=== PATIENT | female | born 2000 | race African-American/Black ===

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

== ENCOUNTER 2018-02-24 14:06 | Emergency (ER) | payer SELFPAY ==
[2018-02-24] MEDS ORDERED: Ibuprofen 800 MG TAB ONE (14:36)
== END 2018-02-24 14:39 | disposition home or self-care (01) ==
LOC: SCSER 14:06
DX: M77.02 Medial epicondylitis, left elbow (principal); J45.909 Unspecified asthma, uncomplicated
CPT/HCPCS: 99283

== ENCOUNTER 2018-11-30 15:53 | Emergency (ER) | payer SELFPAY ==
[2018-11-30 16:27] LABS: Bilirubin Negative (Negative); Blood, Urine Negative (Negative); Clarity Clear (Clear); Glucose, Urine (Dipstick) Negative (Negative); Leukocyte Negative (Negative); Nitrite Negative (Negative); Protein, Urine (Dipstick) Trace mg/dL (Neg-Trace); pH, Urine 8.5 (5.0-9.0)
[2018-11-30 16:54] LABS: Eosinophils 1 % (0-10); Hemoglobin 11.6 g/dL (12.0-16.0); Lymphocytes 23 % (28-48); MDiff Complete? YES; Mean Corpuscular HGB CONC 32.9 g/dL (32.0-36.0); Mean Corpuscular Hemoglobin 28.4 pg (25.0-35.0); Mean Corpuscular Volume 86.3 fL (78.0-98.0); Mean Platelet Volume 5.2 fL (7.4-10.4); Monocytes 15 % (0-4); Neutrophil 58 % (31-61); Platelet Count 327 thou/uL (130-400); Platelet Morphology Comment Appears Adequate; RBC Distribution Width 12.3 % (11.5-14.5); Reactive Lymphocytes 3 % (0-10); Red Blood Cell (RBC) Count 4.08 mill/uL (4.00-5.20); White Blood Cell (WBC) Count 6.6 thou/uL (4.8-10.8)
--- NOTE | 2018-11-30 18:51 | ULT ---
FEXAM: Transabdominal pelvic ultrasound with Doppler PROVIDED CLINICAL HISTORY: Pelvic pain, positive test COMPARISON: None FINDINGS: Uterus measures about 8.8 x 4.5 x 5.1 cm. There is an intrauterine gestational sac containing a pole and yolk sac. Oakes-rump length measurement corresponds to 6 week 0 day gestation. heart rate of 95 bpm is documented. There is a small amount of perigestational hemorrhage. The right and left ovaries are not identified. There is no evidence for significant free pelvic fluid . IMPRESSION: Single live intrauterine gestation, 6 weeks 0 days by crown-rump length. Small amount of perigestatio nal hemorrhage.
[2018-12-03 17:06] LABS: Chlamydia by PCR Not Detected (NotDetected); GC by PCR DETECTED (NotDetected)
== END 2018-11-30 19:34 | disposition home or self-care (01) ==
LOC: SCSER 15:53
DX: O99.89 Other specified diseases and conditions complicating pregnancy, childbirth and the puerperium (principal); R10.30 Lower abdominal pain, unspecified; O99.011 Anemia complicating pregnancy, first trimester; Z3A.01 Less than 8 weeks gestation of pregnancy
CPT/HCPCS: 36415; 76856; 81003; 84702; 85025; 87480; 87510; 87660

== ENCOUNTER 2018-12-22 09:51 | Emergency (ER) | payer OTHER ==
[2018-12-22] MEDS ORDERED: Proparacaine 0.5% Opth 15 ML BOT ONE (10:06)
[2018-12-22] MEDS ORDERED: Acetaminophen 500 MG TAB ONE (10:20)
== END 2018-12-22 10:27 | disposition home or self-care (01) ==
LOC: SCSER 09:51
DX: O99.89 Other specified diseases and conditions complicating pregnancy, childbirth and the puerperium (principal); R51 Headache; Z3A.09 9 weeks gestation of pregnancy
CPT/HCPCS: 99283

== ENCOUNTER 2019-03-09 09:34 | Day surgery (SDC) | payer OTHER ==
[2019-03-09 10:16] VITALS: BMI 22.3
[2019-03-09] MEDS ORDERED: hydrALAZINE 20 MG/ML VIAL SLOW IVP PRN (10:53)
--- NOTE | 2019-03-09 11:02 | PDOC.FPROB ---
FMR OB H&P: HPI - History of Present Illness Chief Complaint: Abdominal pain with vomiting and diarrhea History of Present Illness: Emilia Whitney is a 18 year old female who presents with vague mid- abdominal pain accompanied by vomiting and diarrhea. She began to feel nauseous on Thursday, and had dry heaving that night. She had taken 3 zofran that day, which had been prescribed to her in early . On Thursday morning, she vomited once and it appeared like yellow bile to her. She did not vomit again until this morning when she vomited several times. Then at work, she vomited profusely at her desk. The vomit appeared to have streaks of bright red blood in it, but was primarily bilious. She also began to have profusely loose and watery green diarrhea this morning. Her co-workers brought her to the ER at [facility] because it was closest to her work, and she was sent to OB triage to rule out obstetric problems. On presentation, she denied vaginal bleeding or lower uterine cramping. She has only had a minor amount of white discharge that is not abnormal for her. Her obstetrical history has been uncomplicated as far as she knows, and her last OB appointment was [address] Forte. She reports her abdominal pain to extend from her umbilicus down to the top of her pelvic region, and states the pain is 6/10. At its worst, she experienced 9/10 pain when she had thrown up at work. She reports feeling constipated over the past 2-3 weeks, which she associates with starting to use zofran. She has not taken any zofran in the last 3 days, and has not attempted to relieve her nausea or pain with anything else. She denies recent trave or sick contacts, and does not think that she has eaten anything suspicous in the last few days. Her last meal was [employer] chicken tenders yesterday evening, and she was able to eat a little bit of some apples this mornign. She has been able to keep down liquid, with her last sips of liquid being this morning at work. Primary Care Physician: Dr. Forte - OB - [facility] OB H&P: Current - Care : 1 Para: 1 Gestational age: 20 weeks 0 days Due date: July 27 Course/Complications: Full care per history, no complications FMR OB H&P: History - Past Medical History PMH: Asthma, diagnosed in childhood - treated with PRN inhaler that she has not had to use in over a month Glaucoma, diagnosed ~3 months ago -treated with eye drops - Social History Social History: Never smoked, does not consume alcohol FMR OB H&P: Medications - Current Home Medications: Medication Instructions Recorded Confirmed Type Albuterol Sulfate [Proair HFA] 1 puff INH PRN PRN 03/09/19 03/09/19 History Brimonidine Tartrate [Brimonidine 1 drop EA EYE TID 03/09/19 03/09/19 History Tartrate 0.15% Ophth Soln] Allergies/Adverse Reactions: Allergies Allergy/AdvReac Type Severity Reaction Status Date / Time No Known Allergies Allergy Verified 03/09/19 10:21 FMR OB H&P: ROS - Review of Systems General: denies: recent trauma Eyes: reports: vision changes (Glaucoma) Cardiovascular: denies: chest pain, orthopnea Respiratory: denies: shortness of breath Gastrointestinal: reports: abdominal pain, bloating, cramping, nausea, vomiting , diarrhea, constipation (Over the past 2-3 weeks has been constipated, with straining during defecation. Diarrhea began this morning.), bright red blood ( In vomit) Genitourinary (Female): reports: vaginal discharge (White discharge not out of the normal for her). denies: vaginal bleeding, contractions Neurologic: denies: syncope, seizures, loss of counsciousness, headache FMR OB H&P: Vital Signs - Maternal Vital signs: Temp 99.1 - Heart Tones Baseline: 140 FMR OB H&P: Physical Exam - Physical Exam General: awake, alert and oriented Heart: RRR, normal S1/S2, no murmurs/rubs/gallops General: CTAB, no respiratory distress, good air movement, no rales/rhonchi, no wheezing, no retractions Abdomen: soft, gravid, non-tender, bowel sound present (Rumbling, active BS) FMR OB H&P: A/P Disposition: Viral gastroenteritis is strongly suspected. Patient is stable and obstetrical issues have been ruled out at this time. Patient will be discharged and has been given instructions to continue to keep fluid down as tolerated and to replace electrolytes with diluted gatorade or pedialyte. She will call Dr. Forte in one day if she has not resolved her symptoms. Discussion: Date/Time: 03/09/19 2985 This H&P was discussed with [] and [] who agree with the above documentation and plan. Addendum - Attending - Attending Attestation Date/Time: 03/09/19 1119 I personally evaluated the patient and discussed the management with Michael Pitts MS3 [facility] I agree with the History, Examination, Assessment and Plan documented above with any addition or exceptions noted below. Vital signs, 99/67, P83, Sat 100% ra. PE: Abdomen soft to palpation, no palpable contractions. BS hyperactive in upper abdomen, no sounds concerning for obstruction. A/P IUP 20 wks Gastroenteritis likely- able to keep fluids down. Pt has RX at home for nausea/ vomiting. Pt to Follow up with Dr Forte in 1-2 days if symptoms dont improve.
== END 2019-03-09 10:55 | disposition home health service (06) ==
LOC: L&D/OP 09:34
PROVIDERS: ATTEND Obstetrics & Gynecology
DX: O21.9 Vomiting of pregnancy, unspecified (principal); O99.89 Other specified diseases and conditions complicating pregnancy, childbirth and the puerperium; R10.33 Periumbilical pain; R19.7 Diarrhea, unspecified; H40.9 Unspecified glaucoma; O99.512 Diseases of the respiratory system complicating pregnancy, second trimester; J45.909 Unspecified asthma, uncomplicated; Z3A.20 20 weeks gestation of pregnancy
CPT/HCPCS: 99282

== ENCOUNTER 2020-10-08 05:49 | Emergency (ER) | payer SELFPAY ==
[2020-10-08] MEDS ORDERED: Meclizine HCl 25 MG TAB ONE (06:02)
[2020-10-08] MEDS ORDERED: Acetaminophen 500 MG TAB ONE (06:54)
--- NOTE | 2020-10-08 07:39 | CT ---
PRELIMINARY REPORT/[facility]/EMERGENCY AFTER HOURS PROCEDURE EXAM: CT Head Without Intravenous Contrast. CLINICAL HISTORY: NO PREVIOUS.. ER 12.... TRIPPED OVER CHILD'S TOYS. BLURRED VISION, HEADACHE, DIZZINESS. POSS LOC. ONL Y ONE HOME. TECHNIQUE: Axial computed tomography images of the head/brain without intravenous contrast. COMPARISON: None provided. FINDINGS: BRAIN: No acute intraparenchymal hemorrhage. No mass lesion. No CT evidence for acute territorial infarct. N o midline shift or extra-axial collection. VENTRICLES: No hydrocephalus. ORBITS: The orbits are unremarkable. SINUSES AND MASTOIDS: The paranasal sinuses and mastoid air cells are clear. SOFT TISSUES: No significant facial or scalp soft tissue swelling evident. No radiopaque foreign body is seen. BONES: No acute skull fracture. IMPRESSION: No acute intracranial abnormality. ELECTRONICALLY SIGNED BY: Mikayla Buckley MD Oct 08, 2020 6:41:32 AM [employer] This report is intended for review by the ordering physician only, in accordance of law. If you recei ve this report in error, please call [facility] at [phone]. FINAL REPORT Exam: Head CT without contrast HISTORY: Trauma. Fall. Pain and dizziness. Blurred vision. COMPARISON: none FINDINGS: Hemorrhage: No intraparenchymal hemorrhage or extra-axial hematoma. Brain parenchyma: Cortical reveles-white matter differentiation is preserved. No mass effect or midline shift. Basilar cisterns are patent. Ventricular system: Ventricles and sulci are patent and symmetric. Calvarium: Intact. Scalp: Right frontal scalp hematoma. Sinuses and mastoid air cells: Adequate aeration. IMPRESSION: 1. This report is in agreement with initial report by [facility]. 2. No intracranial posttraumatic sequelae. Transcribed Date/Time: 10/08/2020 8:16 AM
== END 2020-10-08 07:30 | disposition home or self-care (01) ==
LOC: ERS 05:49
DX: S06.0X9A Concussion with loss of consciousness of unspecified duration, initial encounter (principal); W01.198A Fall on same level from slipping, tripping and stumbling with subsequent striking against other object, initial encounter; J45.909 Unspecified asthma, uncomplicated
CPT/HCPCS: 70450

== ENCOUNTER 2020-11-28 15:36 | Emergency (ER) | payer SELFPAY, MEDICAID | END 2020-11-28 18:08 | disposition left against medical advice (07) | LOC: ERS 15:36 | DX: Z53.21 Procedure and treatment not carried out due to patient leaving prior to being seen by health care provider (principal) ==

== ENCOUNTER 2021-03-18 13:14 | Emergency (ER) | payer SELFPAY | END 2021-03-18 14:25 | disposition home or self-care (01) | LOC: ERS 13:14 | DX: J02.9 Acute pharyngitis, unspecified (principal) | CPT/HCPCS: 99282; J1100 ==

== ENCOUNTER 2022-12-17 08:06 | Emergency (ER) | payer SELFPAY | END 2022-12-17 10:42 | disposition left against medical advice (07) | LOC: ERS 08:06 | DX: Z53.21 Procedure and treatment not carried out due to patient leaving prior to being seen by health care provider (principal) ==